=== PATIENT | male | born 1955 | race Two or more races ===

== ENCOUNTER → 2024-09-05 | Outpatient (CLI) | payer MEDICARE, MEDICAID, SELFPAY ==
--- NOTE | 2024-09-05 10:44 | XR_ITS ---
Examination: PA lateral chest 2 views Technique: Upright PA lateral chest 2 views Exam date and time: September 05, 2024 1058 hrs. Indications: Diagnosis coccidiomycosis, coughing one week. Findings: No significant cardiac enlargement No pneumonia or pulmonary edema Moderate thoracic spondylosis Impression: No pneumonia identified
[2024-09-05 11:58] LABS: Alanine Aminotransferase 28 U/L (10-49); Aspartate Amino Transferase 22 U/L (0-34)
[2024-09-05 13:33] LABS: Cocci Serology, IgM Negative (Negative)
[2024-09-06 13:39] LABS: Cocci Serology, IgG Negative (Negative)
== END | disposition home or self-care (01) ==
LOC: CDIM 10:25 → COPL 11:10
PROVIDERS: Referring Provider Specialist; Visit Provider Specialist
DX: B38.9 Coccidioidomycosis, unspecified (principal)
CPT/HCPCS: 36415; 71046; 84450; 84460; 86331; 86635

== ENCOUNTER → 2025-03-02 | Outpatient (CLI) | payer MEDICARE, SELFPAY ==
[2025-03-02 14:42] LABS: Cocci Serology, IgM Negative (Negative)
[2025-03-03 10:39] LABS: Cocci Serology, IgG Positive (Negative)
[2025-03-03 10:41] LABS: Cocid Sro, CF/ID (UCD) NO CHG* See Sep Rpt
== END | disposition home or self-care (01) ==
PROVIDERS: PCP Family Medicine; Referring Provider Specialist; Visit Provider Specialist
DX: B38.1 Chronic pulmonary coccidioidomycosis (principal)
CPT/HCPCS: 36415; 86331; 86635